=== PATIENT | male | born 1955 | race Caucasian/White ===

== ENCOUNTER 2017-03-01 00:04 | Inpatient (IN) | payer MEDICARE, OTHER ==
[2017-03-01] MEDS ORDERED: RINGER'S SOLUTION,LACTATED 1,000 ML IV PRN (06:00)
[2017-03-01] MEDS ORDERED: ceFAZolin SODIUM 1 GM VIAL IV PRN (06:00)
[2017-03-01] MEDS ORDERED: FLU VACC QS2017-18(6MOS UP)/PF 60 MCG/0.5 ML SYRINGE IM ONE (09:00)
[2017-03-01] MEDS ORDERED: NORMAL SALINE 1,000 ML IV ONE (10:05)
[2017-03-01 10:07] VITALS: BP 114/64
--- NOTE | 2017-03-01 11:03 | DS ---
Description of Stay: Mr. Diane was brought in with the intent to have a Reverse total shoulder but it was felt that he was not able to consent to anesthesia and he had no family/ POA present or reachable. He is now to be discharged. No intervention was performed. Procedures Performed: none Discharge Disposition: Home self care Disposition: Home self-care Condition: Fair Discharge Activity: Activity as tolerated Discharge Diet: General/regular food Complete Home Medications List: Complete Home Medication List: Aspirin [Aspirin Enteric Coated] 81 mg PO DAILY 02/17/17 Diclofenac Sodium [Voltaren] 75 mg PO BID 02/17/17 HYDROcodone/ACETAMINOPHEN [[place] 5-325] 1 tab PO Q8H PRN 02/17/17 Ondansetron HCl [Zofran] 4 mg PO Q8H 02/17/17 Beclomethasone Dipropionate [Qvar] 40 mcg IH BID 03/01/17 Cholecalciferol (Vitamin D3) [Vitamin D] 2,000 unit PO DAILY 03/01/17 Furosemide [Lasix] 80 mg PO BID 03/01/17 Ipratropium [place] [Atrovent Hfa] 1 puff IH QID PRN 03/01/17 Lactulose [Enulose] 30 ml PO TID 03/01/17 Levothyroxine Sodium [Synthroid] 88 mcg PO DAILY 03/01/17 Metoprolol Tartrate [Lopressor] 12.5 mg PO BID 03/01/17 Potassium Chloride 10 meq PO DAILY 03/01/17 Rifaximin [Xifaxan] 550 mg PO BID 03/01/17 Sertraline HCl [Zoloft] 25 mg PO DAILY 03/01/17 Spironolactone [Aldactone] 25 mg PO DAILY 03/01/17
== END 2017-03-01 11:27 | disposition home or self-care (01) | DRG 561 ==
LOC: MS 00:04
PROVIDERS: ADMIT Orthopaedic Surgery; ATTEND Orthopaedic Surgery
DX: S42.202G Unspecified fracture of upper end of left humerus, subsequent encounter for fracture with delayed healing (principal); Z53.09 Procedure and treatment not carried out because of other contraindication; R41.82 Altered mental status, unspecified; X58.XXXD Exposure to other specified factors, subsequent encounter; J44.9 Chronic obstructive pulmonary disease, unspecified; F17.210 Nicotine dependence, cigarettes, uncomplicated; K74.60 Unspecified cirrhosis of liver; I10 Essential (primary) hypertension; E78.5 Hyperlipidemia, unspecified; I87.2 Venous insufficiency (chronic) (peripheral); Z23 Encounter for immunization
CPT/HCPCS: 90686; G0008

== ENCOUNTER 2017-03-01 11:32 | Observation (INO) | payer MEDICARE, OTHER ==
--- NOTE | 2017-03-01 12:20 | ERNOTE ---
Neuro HPI ER Record Date of Service: 03/01/17 Presenting Symptoms: confusion Time Seen by Provider: 03/01/17 11:59 Source: patient, RN/MD, RN notes reviewed, past records Exam Limitations: clinical condition Immunizations: IMMUNIZATION HX Immunizations Up to Date Yes History of Influenza Vaccine No Hx Pneumococcal Vaccination No Allergies/Adverse Reactions: Allergies Allergy/AdvReac Type Severity Reaction Status Date / Time hydromorphone Allergy Unknown Verified 02/17/17 13:40 morphine AdvReac Mild Nausea Verified 02/17/17 13:40 tramadol AdvReac Mild Itching Verified 02/17/17 13:40 trazodone AdvReac Mild Itching Verified 02/17/17 13:40 Home Medications: HOME MEDICATIONS Aspirin [Aspirin Enteric Coated] 81 mg PO DAILY 02/17/17 [Last Taken Unknown] Diclofenac Sodium [Voltaren] 75 mg PO BID 02/17/17 [Last Taken Unknown] HYDROcodone/ACETAMINOPHEN [[place] 5-325] 1 tab PO Q8H PRN 02/17/17 [Last Taken Unknown] Ondansetron HCl [Zofran] 4 mg PO Q8H 02/17/17 [Last Taken Unknown] Beclomethasone Dipropionate [Qvar] 40 mcg IH BID 03/01/17 [Last Taken Unknown] Cholecalciferol (Vitamin D3) [Vitamin D] 2,000 unit PO DAILY 03/01/17 [Last Taken Unknown] Furosemide [Lasix] 80 mg PO BID 03/01/17 [Last Taken Unknown] Ipratropium [place] [Atrovent Hfa] 1 puff IH QID PRN 03/01/17 [Last Taken Unknown] Lactulose [Enulose] 30 ml PO TID 03/01/17 [Last Taken Unknown] Levothyroxine Sodium [Synthroid] 88 mcg PO DAILY 03/01/17 [Last Taken Unknown] Metoprolol Tartrate [Lopressor] 12.5 mg PO BID 03/01/17 [Last Taken Unknown] Potassium Chloride 10 meq PO DAILY 03/01/17 [Last Taken Unknown] Rifaximin [Xifaxan] 550 mg PO BID 03/01/17 [Last Taken Unknown] Sertraline HCl [Zoloft] 25 mg PO DAILY 03/01/17 [Last Taken Unknown] Spironolactone [Aldactone] 25 mg PO DAILY 03/01/17 [Last Taken Unknown] - History of Present Illness Narrative: Pt. comes from [facility] inpatient unit with c/o confusion. Pt. was scheduled for an orthopedic procedure and was admitted last night as pt. is unreliable as he is unable to be trusted to be NPO or do a procedural scrub as he has some baseline memory loss. When pt. was seen by anesthesia this morning he was confused and unable to sign the consent for procedure and his attending orthopedic surgeon was consulted who consulted risk management who suggested that the doctor discharge the pt. and have him go to the ER as an outpatient. Pt. states that he has liver failure and occasionally has periods of confusion but is unaware of what procedure he was to have and what year it is. Review of Systems - Review of Systems Constitutional: Present: weakness, fatigue, malaise. Absent: recent illness, fever, chills EYE: Present: no symptoms reported ENT: Present: no symptoms reported Respiratory: Present: shortness of breath, cough, wheezing Cardiology: Present: no symptoms reported Gastrointestinal/Abdominal: Present: no symptoms reported. Absent: vomiting, diarrhea Genitourinary: Present: no symptoms reported Musculoskeletal: Present: no symptoms reported Skin: Present: no symptoms reported Neurological: Present: other - AMS. Absent: headache, dizziness/light- headedness All Other Systems: All systems neg except as marked - Patient's Past Medical History Patient History - Medical: Anxiety, GERD, Hypothyroidism, Liver Disease, UTI'S Patient History - Cardiac/Respiratory: COPD, CVA/Stroke, Hypertension, Hyperlipidemia Patient History - Cancer: No Hx of Cancer Patient History - Surgical Procedures: Appendectomy, Cholecystectomy, Colonoscopy, Other - Family History Brother Family History - Medical: History Unknown Family History - Cardiac/Respiratory: Aneurysm, Coronary Heart Disease Family History - Cancer: History Unknown Father Family History - Medical: , History Unknown Family History - Cardiac/Respiratory: Coronary Heart Disease, Myocardial Infarction Family History - Cancer: History Unknown Mother Family History - Medical: , Other Family History - Cardiac/Respiratory: Aneurysm, CVA/Stroke, Hypertension Family History - Cancer: History Unknown - Social History Living Situations: home Abuse History: No History of abuse Psych History: Hx of Anxiety - Immunizations Immunizations Up to Date: Yes Hx Pneumococcal Vaccination: No History of Influenza Vaccine: No Physical Exam - Physical Exam General Appearance: Present: no apparent distress, lethargic, thin Head Exam: Present: normal inspection, no evidence of injury Eye Exam: PERRL: bilateral, EOMI: bilateral, Scleral icterus: bilateral Ears, Nose, Throat: Present: normal ENT inspection, normal pharynx Neck: Present: normal inspection, nontender. Absent: lymphadenopathy (R), lymphadenopathy (L) Respiratory: Present: no respiratory distress, no accessory muscle use, chest nontender, rhonchi - throughout, wheezing - throughout Cardiovascular/Chest: Present: regular rate, rhythm, no murmur, normal peripheral pulses Gastrointestinal/Abdominal: Present: normal bowel sounds, nontender, distended, hepatomegaly Back Exam: Present: normal inspection Extremity Exam: Present: decreased range of motion - L arm, bony tenderness - L prox humerus, other - R 2nd toe nail missing Neurological Exam: Present: motor weakness - generalized, disoriented to time, disoriented to place, disoriented to situation. Absent: disoriented to person Skin Exam: Present: other - scabbed over areas of various sizes innummeral on all extremities LLE hemosiderin staining Justice Coma Scale - Assess Eye Opening: Spontaneous Motor: Obeys Commands Verbal: Confused - Total Coma Scale Total: 14 Initial Stroke Assessment - Date/Time of assessment Stroke Scale Date: 03/01/17 - NIH Stroke Scale Level of Consciousness: Drowsy LOC Questions (Year and Age): Answers one correctly LOC Commands (open/close eyes/fist): Performs both correctly Lateral Gaze Paresis: None Visual Field Loss: No visual loss Facial Palsy: Normal movement Right Arm Motor (10 sec hold): No drift Left Arm Motor (10 sec hold): No drift Right Leg Motor (5 sec hold): No drift Left Leg Motor (5 sec hold): No drift Limb Ataxia (finger/nose heel/bedoya): Absent Sensory Loss (pinprick arms/legs/face): No sensory loss Language Aphasia (description/naming/reading): No aphasia; normal Dysarthria (speech clarity): Normal articulation Neglect Inattention (visual/tactile/auditory/spatial/person): No neglect Initial Stroke Scale Score:: 2 Stroke Inclusion/Exclusion Cri - Exclusion Questions: NIHSS Score <4 or >22 performed by physician: Yes ED Progress - Results and Orders Patient's Lab Results:: I have reviewed the patient's lab results. Results and Orders: [address] Caraballo who accepts pt. for acute admission and denies any further questions or orders at this time. - Vital Signs Patient's Vital Signs:: I have reviewed the patient's vital signs. Vital Signs: Vital Signs 03/01/17 03/01/17 11:45 11:52 Temperature 37.1 C Pulse Rate 74 78 Respiratory 14 Rate Blood Pressure 108/48 O2 Sat by Pulse 97 Oximetry - X-Ray X-Ray #1 X-Ray: chest Interpretation: Reviewed by me X-ray Comments: Chest Single View *: Hypoinflated lungs. No definite consolidation. There is increased pulmonary vasculature, and peripheral linear lung markings. There is no definable pneumothorax. There may be trace left-sided pleural effusion. Mild to moderate cardiomegaly suggested. Trachea is in normal position given patient positioning. The left proximal humerus appears to be abnormal with a potential fracture which is partially obscured by radiographic annotation placed over the area. Patient does have a previous left shoulder radiograph from [facility] dated 02/03/2017 which demonstrates the fracture. IMPRESSION: 1. Pulmonary vascular congestion and interstitial edema suggested. 2. Trace left-sided pleural effusion. 3. Mild cardiomegaly. 4. Left humeral fracture. - CT/Ultrasound CT/Ultrasound Narrative: CT head 1. Bilateral right > left subdural extra-axial fluid collections, suggestive of chronic subdural hematomas. 2. No evidence for midline shift or herniation. 3. Likely an old infarct in the right insular cortex as above. 4. Additional comments as above. Ordering provider Hui Alonzo was informed regarding the above results via telephone on 03/01/2017 12:54 PM. Electronically signed by Tai Mi M.D.. Tai Mi MD - Progress/Reassessment Chief Complaint: Altered Mental Status Progress:: Unchanged Departure Clinical Impression: Hepatic encephalopathy, Altered awareness, transient, Subdural hematoma, chronic Humeral fracture Qualifiers: Encounter type: sequela Humerus Location: proximal Fracture type: closed Fracture morphology: unspecified fracture morphology Laterality: left Qualified Code(s): S42.202S - Unspecified fracture of upper end of left humerus, sequela Liver failure Qualifiers: Liver failure chronicity: chronic Hepatic coma status: without hepatic coma Qualified Code(s): K72.10 - Chronic hepatic failure without coma Hepatitis B Qualifiers: Viral hepatitis chronicity: chronic Hepatic coma status: without hepatic coma Hepatitis delta agent presence: without delta-agent Qualified Code(s): B18.1 - Chronic viral hepatitis B without delta-agent - Departure Disposition: [facility] Condition: Serious Critical Care Time - Critical Care Critical Time Spent:: Yes Total time (mins) Spent:: 45 Critical Care: Time spent stabilizing pt., discussion with other providers and patient, and coordinating care.
[2017-03-01 12:58] LABS: Hematocrit 28.6 % (42.0-52.0); Hemoglobin 9.3 gm/dL (13.5-18.0); Mean Cell Volume 83.9 fl (78-100); Mean Corpuscular Hemoglobin 27.3 pg (27-31); Mean Corpuscular Hgb Conc 32.5 g/dl (32-36); Mean Platelet Volume 9.8 fl (6.0-9.5); Neutrophil # 1.9 K/mm3 (1.3-6.0); Neutrophil % 53.5 % (42-75.0); Platelet Count 85 K/mm3 (150-450); Red Blood Count 3.41 M/mm3 (4.7-6.0); Red Cell Distribution Width 18.4 % (11.5-14.0); White Blood Count 3.6 K/mm3 (4.0-10.5)
[2017-03-01] MEDS ORDERED: ALBUTEROL SULFATE 2.5 MG/0.5 ML VIAL.NEB IH ONE ×2 (13:03→13:14)
[2017-03-01 13:05] LABS: Prothrombin Time (Patient) 11.6 Seconds (9.0-11.0)
[2017-03-01 13:13] LABS: INR 1.16 INR (0.90-1.10)
[2017-03-01 13:14] LABS: Urine Bilirubin Negative (NEGATIVE); Urine Blood Negative /ul (NEGATIVE); Urine Ketone Negative (NEGATIVE); Urine Nitrite Negative (NEGATIVE); Urine Protein Negative (NEGATIVE); Urine Urobilinogen 4 EU/dl (NORMAL)
[2017-03-01] MEDS ORDERED: FUROSEMIDE 10 MG/ML VIAL ONE (13:14)
[2017-03-01] MEDS ORDERED: FUROSEMIDE 10 MG/ML VIAL IV ONE (13:14)
[2017-03-01 13:18] LABS: ALT 36 U/L (19-67); AST 52 U/L (0-48); Acetaminophen * 1.4 mcg/mL (10.0-30.0); Albumin * 2.1 gm/dl (3.4-5.0); Alkaline Phosphatase * 248 U/L (50-170); Amylase * 75 U/L (25-115); Anion Gap 10.7 mmol/L (6.8-13.8); BUN/Creatinine Ratio 11.7 (9.0-21.6); Bilirubin, Total 1.9 mg/dL (0.0-1.1); Blood Urea Nitrogen 11 mg/dL (6-23); Ca. Corrected For Albumin 9.2 mg/dL (8.4-10.2); Carbon Dioxide 25.8 mmol/L (24-32.6); Chloride 108 mmol/L (97-106); Glucose * 94 mg/dL (70-110); Lipase 359 U/L (73-393); Potassium 3.5 mmol/L (3.4-4.6); Sodium 141 mmol/L (132-142)
[2017-03-01 13:21] LABS: Urine Appearance Clear; Urine Color Yellow
[2017-03-01 13:22] LABS: Urine Bacteria None Seen; Urine RBC None Seen /hpf (0-5); Urine WBC None Seen /hpf (0-5)
[2017-03-01] MEDS ORDERED: LACTULOSE 10 G/15 ML BTL PO ONE (13:30)
[2017-03-01 13:35] LABS: Cocaine Ur Negative (NEGATIVE); Urine Barbiturate Negative (NEGATIVE); Urine Benzodiazepines Negative (NEGATIVE); Urine Opiates Negative (NEGATIVE); Urine PCP Negative (NEGATIVE); Urine THC Negative (NEGATIVE)
[2017-03-01] MEDS: LACTULOSE 10 G/15 ML BTL PO SCH ×5 (17:06→23:15)
--- NOTE | 2017-03-01 23:41 | HP ---
Chief Complaint - Chief Complaint Date of Service: 03/01/17 Time of Service: 17:04 Chief Complaint: Altered mental status History of Present Illness: Carlos is a 61yo male with history of cirrhosis on lactulose. He had a humeral fracture that was scheduled to be repaired by orthopedics. He was admitted overnight for pre operative prep by orthopedics as the patient us non-compliant and ortho was concerned that he would not do his required preoperative instructions. On the morning of surgery the patient was confused and unable to sign consents for the surgery. He was discharged from ortho and sent to the ER for evaluation of altered mental status. His ammonia level was found to be elevated. The patient was not alert enough to give further history at this time. He was given lactulose in the ER. He is chronically on lactulose but it is unknown when he last took his home medication. - Patient's Past Medical History Patient History - Medical: Anxiety, GERD, Hypothyroidism, Liver Disease, UTI'S Patient History - Cardiac/Respiratory: COPD, CVA/Stroke, Hypertension, Hyperlipidemia Patient History - Cancer: No Hx of Cancer Patient History - Surgical Procedures: Appendectomy, Cholecystectomy, Colonoscopy, Other - Family History Brother Family History - Medical: History Unknown Family History - Cardiac/Respiratory: Aneurysm, Coronary Heart Disease Family History - Cancer: History Unknown Father Family History - Medical: , History Unknown Family History - Cardiac/Respiratory: Coronary Heart Disease, Myocardial Infarction Family History - Cancer: History Unknown Mother Family History - Medical: , Other Family History - Cardiac/Respiratory: Aneurysm, CVA/Stroke, Hypertension Family History - Cancer: History Unknown - Social History Living Situations: home Abuse History: No History of abuse Psych History: Hx of Anxiety Smoking Status: Current every day smoker Have you smoked in the past 12 months: Yes Alcohol Use: none Drug Use: none - Immunizations Immunizations Up to Date: Yes Hx Pneumococcal Vaccination: No History of Influenza Vaccine: No Review Of Systems (GEN) - Review of Systems Additional Comments: Unable to perform ROS due to confusion. Immunizations: IMMUNIZATION HX Immunizations Up to Date Yes History of Influenza Vaccine No Hx Pneumococcal Vaccination No Allergies/Adverse Reactions: Allergies Allergy/AdvReac Type Severity Reaction Status Date / Time hydromorphone Allergy Unknown Verified 02/17/17 13:40 morphine AdvReac Mild Nausea Verified 02/17/17 13:40 tramadol AdvReac Mild Itching Verified 02/17/17 13:40 trazodone AdvReac Mild Itching Verified 02/17/17 13:40 Home Medications: HOME MEDICATIONS Aspirin [Aspirin Enteric Coated] 81 mg PO DAILY 02/17/17 [Last Taken Unknown] Diclofenac Sodium [Voltaren] 75 mg PO BID 02/17/17 [Last Taken Unknown] HYDROcodone/ACETAMINOPHEN [[place] 5-325] 1 tab PO Q8H PRN 02/17/17 [Last Taken Unknown] Ondansetron HCl [Zofran] 4 mg PO Q8H 02/17/17 [Last Taken Unknown] Beclomethasone Dipropionate [Qvar] 40 mcg IH BID 03/01/17 [Last Taken Unknown] Cholecalciferol (Vitamin D3) [Vitamin D3] 2,000 unit PO DAILY 03/01/17 [Last Taken Unknown] Furosemide [Lasix] 80 mg PO BID 03/01/17 [Last Taken Unknown] Ipratropium [place] [Atrovent Hfa] 1 puff IH QID PRN 03/01/17 [Last Taken Unknown] Lactulose [Enulose] 30 ml PO TID 03/01/17 [Last Taken Unknown] Levothyroxine Sodium [Synthroid] 88 mcg PO DAILY 03/01/17 [Last Taken Unknown] Metoprolol Tartrate [Lopressor] 12.5 mg PO BID 03/01/17 [Last Taken Unknown] Potassium Chloride 10 meq PO DAILY 03/01/17 [Last Taken Unknown] Rifaximin [Xifaxan] 550 mg PO BID 03/01/17 [Last Taken Unknown] Sertraline HCl [Zoloft] 25 mg PO DAILY 03/01/17 [Last Taken Unknown] Spironolactone [Aldactone] 50 mg PO DAILY 03/01/17 [Last Taken Unknown] Exam - Exam Vital Signs: Vital Signs - Last Taken Temp 36.6 C 03/01/17 20:07 Pulse 81 03/01/17 22:00 Resp 20 03/01/17 20:07 BP 155/77 03/01/17 20:07 Pulse Ox 96 03/01/17 20:07 Constitutional: Present: Somnolent - and confused ENT Exam: Present: hearing grossly normal Eye Exam: bilateral eye: normal inspection Respiratory: Present: lungs clear, normal breath sounds Cardiovascular/Chest: Present: regular rate, rhythm, no murmur Abdomen: Present: Normal bowel sounds, soft, nontender, nondistended Appearance: Present: appropriate appearance, appropriate insight Eye contact: Present: cooperative, good eye contact, normal speech Diagnostic Studies: Laboratory Results WBC 3.6 K/mm3 (4.0-10.5) L 03/01/17 12:45 RBC 3.41 M/mm3 (4.7-6.0) L 03/01/17 12:45 Hgb 9.3 gm/dL (13.5-18.0) L 03/01/17 12:45 Hct 28.6 % (42.0-52.0) L 03/01/17 12:45 MCV 83.9 fl (78-100) 03/01/17 12:45 MCH 27.3 pg (27-31) 03/01/17 12:45 MCHC 32.5 g/dl (32-36) 03/01/17 12:45 RDW 18.4 % (11.5-14.0) H 03/01/17 12:45 Plt Count 85 K/mm3 (150-450) L 03/01/17 12:45 MPV 9.8 fl (6.0-9.5) H 03/01/17 12:45 Immature Gran % (Auto) 0.00 % (0.001-0.429) L 03/01/17 12:45 Immature Gran # (Auto) 0.00 K/mm3 (0.000-0.0310) 03/01/17 12:45 Neutrophils % 53.5 % (42-75.0) 03/01/17 12:45 Lymphocytes % 30.5 % (20-51) 03/01/17 12:45 Monocytes % 9.1 % (0.0-9) H 03/01/17 12:45 Eosinophils % 6.1 % (0.0-3.0) H 03/01/17 12:45 Basophils % 0.8 % (0.0-1.0) 03/01/17 12:45 Nucleated RBC % 0.0 k/mm3 (0-1) 03/01/17 12:45 Neutrophils # 1.9 K/mm3 (1.3-6.0) 03/01/17 12:45 Lymphocytes # 1.1 k/mm3 (1.5-3.5) L 03/01/17 12:45 Monocytes # 0.3 k/mm3 (0.0-1.0) 03/01/17 12:45 Eosinophils # 0.2 k/mm3 (0.0-0.7) 03/01/17 12:45 Absolute Basophils 0.0 k/mm3 (0.0-0.1) 03/01/17 12:45 PT 11.6 Seconds (9.0-11.0) H 03/01/17 12:45 INR (Anticoag Therapy) 1.16 INR (0.90-1.10) H 03/01/17 12:45 Sodium 141 mmol/L (132-142) 03/01/17 12:45 Plasma Sodium 141 mmol/L (130-142) 03/01/17 12:45 Potassium 3.5 mmol/L (3.4-4.6) 03/01/17 12:45 Chloride 108 mmol/L (97-106) H 03/01/17 12:45 Carbon Dioxide 25.8 mmol/L (24-32.6) 03/01/17 12:45 Anion Gap 10.7 mmol/L (6.8-13.8) 03/01/17 12:45 BUN 11 mg/dL (6-23) 03/01/17 12:45 Creatinine 0.94 mg/dL (0.4-1.4) 03/01/17 12:45 Est GFR (Non-Af Amer) 87 mL/min (60-130) D 03/01/17 12:45 BUN/Creatinine Ratio 11.7 (9.0-21.6) 03/01/17 12:45 Random Glucose 94 mg/dL (70-110) 03/01/17 12:45 Calcium 8.0 mg/dL (7.9-10.9) 03/01/17 12:45 Calcium Adj for Albumin 9.2 mg/dL (8.4-10.2) 03/01/17 12:45 Total Bilirubin 1.9 mg/dL (0.0-1.1) H 03/01/17 12:45 AST 52 U/L (0-48) H 03/01/17 12:45 ALT 36 U/L (19-67) 03/01/17 12:45 Alkaline Phosphatase 248 U/L (50-170) H 03/01/17 12:45 Ammonia 150.0 mcmol/L (11-35) H 03/01/17 12:45 Total Protein 6.0 gm/dL (6.2-8.2) L 03/01/17 12:45 Albumin 2.1 gm/dl (3.4-5.0) L 03/01/17 12:45 Amylase 75 U/L (25-115) 03/01/17 12:45 Lipase 359 U/L (73-393) 03/01/17 12:45 Urine Color Yellow 03/01/17 13:00 Urine Appearance Clear 03/01/17 13:00 Urine pH 6.0 pH (5.0-7.0) 03/01/17 13:00 Ur Specific [place] 1.020 SP.GR. (1.005-1.030) 03/01/17 13:00 Urine Protein Negative mg/dL (NEGATIVE) 03/01/17 13:00 Urine Glucose (UA) Negative mg/dL (NEGATIVE) 03/01/17 13:00 Urine Ketones Negative mg/dL (NEGATIVE) 03/01/17 13:00 Urine Blood Negative /ul (NEGATIVE) 03/01/17 13:00 Urine Nitrate Negative (NEGATIVE) 03/01/17 13:00 Urine Bilirubin Negative mg/dl (NEGATIVE) 03/01/17 13:00 Urine Urobilinogen 4 EU/dl (NORMAL) H 03/01/17 13:00 Ur Leukocyte Esterase Negative /ul (NEGATIVE) 03/01/17 13:00 Urine RBC None seen /hpf (0-5) 03/01/17 13:00 Urine WBC None seen /hpf (0-5) 03/01/17 13:00 Ur Epithelial Cells 0-5 /hpf (0-5) 03/01/17 13:00 Urine Bacteria None seen (NONE) 03/01/17 13:00 Urine Culture Comments No culture indicated 03/01/17 13:00 Urine Opiates Screen Negative (NEGATIVE) 03/01/17 13:00 Acetaminophen 1.4 mcg/mL (10.0-30.0) L 03/01/17 12:45 Barbiturate Screen Negative (NEGATIVE) 03/01/17 13:00 Ur Phencyclidine Scrn Negative (NEGATIVE) 03/01/17 13:00 Urine Amphetamine Negative (NEGATIVE) 03/01/17 13:00 U Benzodiazepines Scrn Negative (NEGATIVE) 03/01/17 13:00 Urine Cocaine Screen Negative (NEGATIVE) 03/01/17 13:00 Urine Marijuana (THC) Negative (NEGATIVE) 03/01/17 13:00 Ethyl Alcohol Less than 3.0 mg/dL (0.0-10.0) 03/01/17 12:45 Assessment/Plan - Assessment/Plan (1) Hepatic encephalopathy Assessment: Presume this is from not taking his lactulose. Will give this rectally or PO if able every 2 hours until he has a good BM. Goal is to have a soft BM every 1-2 days. Will monitor mental status. Expect 1 midnight stay. Will have him follow up with ortho prn. Problem: Acute (2) Humerus fracture Problem: Acute Qualifiers: Encounter type: sequela Humerus Location: proximal Fracture type: closed Fracture morphology: unspecified fracture morphology Laterality: left Qualified Code(s): S42.202S - Unspecified fracture of upper end of left humerus , sequela
[2017-03-02] MEDS: LACTULOSE 10 G/15 ML BTL PO SCH ×6 (02:17→13:23)
[2017-03-02 07:06] VITALS: BP 123/61
[2017-03-02] MEDS ORDERED: HYDROcodone/ACETAMINOPHEN 1 EACH TABLET PO PRN (08:27)
[2017-03-02] MEDS ORDERED: ONDANSETRON HCL 4 MG TABLET PO SCH (08:30)
[2017-03-02] MEDS ORDERED: BUDESONIDE 0.5 MG/2 ML VIAL.NEB IH SCH (09:00)
[2017-03-02] MEDS ORDERED: DICLOFENAC SODIUM 75 MG TABLET.DR PO SCH (09:00)
[2017-03-02] MEDS ORDERED: NON-FORMULARY 1 DOSE DOSE (Rifaximin [Xifaxan] 550 MG) PO SCH (09:00)
[2017-03-02] MEDS ORDERED: SPIRONOLACTONE 25 MG TABLET PO SCH (09:00)
[2017-03-02] MEDS ORDERED: LEVOTHYROXINE SODIUM 88 MCG TABLET PO SCH (09:00)
[2017-03-02] MEDS ORDERED: METOPROLOL TARTRATE 25 MG TABLET PO SCH (09:00)
[2017-03-02] MEDS ORDERED: ASPIRIN 81 MG TABLET.DR PO SCH (09:00)
[2017-03-02] MEDS ORDERED: CHOLECALCIFEROL 1,000 UNIT CAPSULE PO SCH (09:00)
[2017-03-02] MEDS ORDERED: FUROSEMIDE 80 MG TABLET PO SCH (09:00)
[2017-03-02] MEDS ORDERED: SERTRALINE HCL 50 MG TABLET PO SCH (09:00)
[2017-03-02] MEDS ORDERED: POTASSIUM CHLORIDE 10 MEQ TABLET.SA PO SCH (09:00)
--- NOTE | 2017-03-02 10:59 | DS ---
(1) Hepatic encephalopathy Problem: Acute Description of Stay: Carlos was admitted with hepatic encephalopathy due to noncompliance with his home lactulose. He was given lactulose in the ER and during hospital course. He began having bowel movements and mentation improved to his baseline. He was then discharged to home and will follow up with orthopedics in regards to treatment of his humeral fracture. Patient was educated on the importance of taking his lactulose. Procedures Performed: none Discharge Disposition: Home self care Disposition: Home self-care Condition: Good Discharge Activity: Activity as tolerated, Other - Ortho restrictions as prior Discharge Diet: Low salt Referrals: Joey Islas MD [Non Staff Physicians] - One Week Problem Oriented Discharge Instructions to Patient/Family: Hepatic Encephalopathy Additional Patient Instructions (free text): Patient to call Orthopedics to set up a follow up appointment if he has family to attend his appointments and stay with during pre op and post op. Follow up with Dr. kathy Shore on 03-09-17 @ 2:30pm with Dr. Barksdale as Dr. Islas will be out of the office. Please arrive 15 minutes early for appointment. Complete Home Medications List: Complete Home Medication List: Aspirin [Aspirin Enteric Coated] 81 mg PO DAILY 02/17/17 Diclofenac Sodium [Voltaren] 75 mg PO BID 02/17/17 HYDROcodone/ACETAMINOPHEN [[place] 5-325] 1 tab PO Q8H PRN 02/17/17 Ondansetron HCl [Zofran] 4 mg PO Q8H 02/17/17 Beclomethasone Dipropionate [Qvar] 40 mcg IH BID 03/01/17 Cholecalciferol (Vitamin D3) [Vitamin D3] 2,000 unit PO DAILY 03/01/17 Furosemide [Lasix] 80 mg PO BID 03/01/17 Ipratropium [place] [Atrovent Hfa] 1 puff IH QID PRN 03/01/17 Lactulose [Enulose] 30 ml PO TID 03/01/17 Levothyroxine Sodium [Synthroid] 88 mcg PO DAILY 03/01/17 Metoprolol Tartrate [Lopressor] 12.5 mg PO BID 03/01/17 Potassium Chloride 10 meq PO DAILY 03/01/17 Rifaximin [Xifaxan] 550 mg PO BID 03/01/17 Sertraline HCl [Zoloft] 25 mg PO DAILY 03/01/17 Spironolactone [Aldactone] 50 mg PO DAILY 03/01/17
== END 2017-03-02 17:40 | disposition home or self-care (01) ==
LOC: ER 11:32 → MS 13:51 → INTOOBSV 13:51
PROVIDERS: ADMIT Family Medicine; ATTEND Family Medicine
DX: K72.10 Chronic hepatic failure without coma (principal); S42.202G Unspecified fracture of upper end of left humerus, subsequent encounter for fracture with delayed healing; I62.03 Nontraumatic chronic subdural hemorrhage; I10 Essential (primary) hypertension; B18.1 Chronic viral hepatitis B without delta-agent; J44.9 Chronic obstructive pulmonary disease, unspecified; F17.200 Nicotine dependence, unspecified, uncomplicated; E03.9 Hypothyroidism, unspecified
CPT/HCPCS: 36415; 70450; 80053; 80307; 81001; 82140; 82150; 83690; 85025; 85610; 94640; 96374; 99291; G0378; G0480; G0481